=== PATIENT | female | born 1955 | race African-American/Black ===

== ENCOUNTER 2021-11-26 08:29 | Emergency (ER) | payer OTHER, MEDICAID ==
[~2021-11-26] VITALS: Ht 162.6 cm; Wt 80.1 kg
[2021-11-26 08:36] VITALS: BP 151/96
--- NOTE | 2021-11-26 09:16 | PHYS DOC ---
Past Medical History Past Medical History: Hypertension, Other Additional Past Medical Histor: AORTA BUMP Past Surgical History: Cholecystectomy, Additional Past Surgical Histo: hernia Smoking Status: Current Every Day Smoker Alcohol Use: Rarely Drug Use: Marijuana General Adult EDM: Chief Complaint: UPPER EXTREMITY INJURY HPI: HPI: Patient is a 66 year old female who present to ER for evaluation of right shoulder injury. Patient said 2 days ago she was rollerskating, fell down on a wooden floor, hit her right shoulder. Patient denies any head or neck injury. Patient denies any pain in her elbow or her wrist. Patient denies any back pain, no pelvic pain. Patient said she has right shoulder pain whenever she tries to arm up. Patient denies any weakness or numbness in her right upper extremity. Review of Systems: Review of Systems: Constitutional: Denies fever or chills. [] Eyes: Denies change in visual acuity. [] HENT: Denies nasal congestion or sore throat. [] Respiratory: Denies cough or shortness of breath. [] Cardiovascular: Denies chest pain or edema. [] GI: Denies abdominal pain, nausea, vomiting, bloody stools or diarrhea. [] : Denies dysuria. [] Musculoskeletal: Denies back pain , positive for right shoulder pain Integument: Denies rash. [] Neurologic: Denies headache, focal weakness or sensory changes. [] Endocrine: Denies polyuria or polydipsia. [] Lymphatic: Denies swollen glands. [] Psychiatric: Denies depression or anxiety. [] Heart Score: C/O Chest Pain: N/A Risk Factors: Risk Factors: DM, Current or recent (<one month) smoker, HTN, HLP, family history of CAD, obesity. Risk Scores: Score 0 - 3: 2.5% MACE over next 6 weeks - Discharge Home Score 4 - 6: 20.3% MACE over next 6 weeks - Admit for Clinical Observation Score 7 - 10: 72.7% MACE over next 6 weeks - Early Invasive Strategies Allergies: Allergies: Allergies Coded Allergies Type Severity Reaction Last Updated Verified No Known Drug Allergies 01/20/15 No Physical Exam: PE: Constitutional: Well developed, well nourished, no acute distress, non-toxic appearance. [] HENT: Normocephalic, atraumatic, bilateral external ears normal, oropharynx moist, no oral exudates, nose normal. [] Eyes: PERRLA, EOMI, conjunctiva normal, no discharge. [] Neck: Normal range of motion, no tenderness, supple, no stridor. [] Cardiovascular:Heart rate regular rhythm, no murmur [] Lungs & Thorax: Bilateral breath sounds clear to auscultation [] Abdomen: Bowel sounds normal, soft, no tenderness, no masses, no pulsatile masses. [] Skin: Warm, dry, no erythema, no rash. [] Back: No tenderness, no CVA tenderness. [] Extremities: No tenderness, no cyanosis, no clubbing, ROM intact, no edema. [] Neurologic: Alert and oriented X 3, normal motor function, normal sensory function, no focal deficits noted. [] Psychologic: Affect normal, judgement normal, mood normal. [] Current Patient Data: Vital Signs: Vital Signs Date Time Temp Pulse Resp B/P (MAP) Pulse Ox O2 Delivery O2 Flow Rate FiO2 11/26/21 08:36 98.1 70 18 151/96 (114) 99 Room Air 98.1 EKG: EKG: [] Radiology/Procedures: Radiology/Procedures: [facility] [address] [place] [address] IMAGING REPORT Signed PATIENT: ASHIA LOPEZCOUNT: [id number] : 1955 LOCATION: ER AGE: 66 SEX: F EXAM STATUS: REG ER ORD. PHYSICIAN: SHASHI MCKINLEY DO REASON: FELL, RIGHT SHOULDER PAIN, LROM PROCEDURE: SHOULDER 2+V RIGHT Exam: XR SHOULDER_RIGHT 2+ VIEWS History: Fall. Right shoulder pain. Limited range of motion. Comparison: None. Findings: Osseous mineralization is normal. No acute fracture or dislocaton. Mild degenerative changes of the acromioclavicular joint. Soft tissues are unremarkable. Visualized lung is clear. Impression: 1. No acute osseous abnormality of the right shoulder. Electronically signed by: Jorge Burnham MD (11/26/2021 10:01 AM) [id number] DICTATED and SIGNED BY: JORGE BURNHAM MD DATE: 11/26/21 [id number] 0 Course & Med Decision Making: Course & Med Decision Making Pertinent Labs and Imaging studies reviewed. (See chart for details) Patient is a 66-year-old female who present to ER due to right shoulder injury. X-ray did not show any acute problem. Patient will be discharged home, she will need to follow-up with her doctor for outpatient evaluation with MRI of her right shoulder it keeps him to have pain. Patient was recommended take ibuprofen or Tylenol as needed for pain control. Dragon Disclaimer: Dragon Disclaimer: This electronic medical record was generated, in whole or in part, using a voice recognition dictation system. Departure Departure Impression: Primary Impression: Right shoulder strain Disposition: HOME / SELF CARE / HOMELESS Condition: STABLE Referrals: NON,STAFF (PCP) Follow up with your doctor for outpatient evaluation with MRI of your right shoulder Patient Instructions: Shoulder Pain Additional Instructions: Thank you for visiting our Emergency Department. We appreciate you trusting us with your care. If any additional problems come up don't hesitate to return to visit us. Please follow up with your primary care provider so they can plan additional care if needed and know about the problem that you had. If symptoms worsen come back to the Emergency Department. Any concerning symptoms that start such as chest pain, shortness of air, weakness or numbness on one side of the body, running high fevers or any other concerning symptoms return to the ER. SHASHI MCKINLEY DO Nov 26, 2021 09:16
--- NOTE | 2021-11-26 10:03 | RAD ---
Exam: XR SHOULDER_RIGHT 2+ VIEWS History: Fall. Right shoulder pain. Limited range of motion. Comparison: None. Findings: Osseous mineralization is normal. No acute fracture or dislocaton. Mild degenerative changes of the a cromioclavicular joint. Soft tissues are unremarkable. Visualized lung is clear. Impression: 1. No acute osseous abnormality of the right shoulder. Electronically signed by: Jorge Gutierrez MD (11/26/2021 10:01 AM) [id number]
== END 2021-11-26 10:22 | disposition home or self-care (01) ==
LOC: ER 08:29
DX: S46.911A Strain of unspecified muscle, fascia and tendon at shoulder and upper arm level, right arm, initial encounter (principal); W18.09XA Striking against other object with subsequent fall, initial encounter; Y93.89 Activity, other specified; Y92.89 Other specified places as the place of occurrence of the external cause; Y99.8 Other external cause status
CPT/HCPCS: 73030; 99283